=== PATIENT | male | born 1955 | race Caucasian/White ===

== ENCOUNTER 2019-01-31 13:52 | Observation (INO) | payer BC ==
[~2019-01-31] VITALS: Ht 185.4 cm; Wt 104.8 kg
--- NOTE | 2019-01-31 14:26 | NUR ---
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
[2019-01-31 14:35] LABS: BASOPHILS # (AUTO) 0.04 x10^3/uL (0-0.1); BASOPHILS % (AUTO) 1 % (0-1); EOSINOPHILS # (AUTO) 0.13 x10^3/uL (0-0.4); EOSINOPHILS % (AUTO) 2 % (1-7); LYMPHOCYTES # (AUTO) 1.97 x10^3/uL (1-3.4); LYMPHOCYTES % (AUTO) 23 % (22-44); MD NO; MEAN CORPUSCULAR HEMOGLOBIN 29.8 pg (27.5-34.5); MEAN CORPUSCULAR VOLUME 87.7 fL (81-97); MEAN PLATELET VOLUME 7.9 fL (7.4-10.4); MONOCYTES % (AUTO) 5 % (2-9); NEUTROPHILS # (AUTO) 5.96 x10^3/uL (1.8-6.8); NEUTROPHILS % (AUTO) 70 % (42-75); PLATELET COUNT 201 x10^3/uL (130-400); RED BLOOD COUNT 4.83 x10^6/uL (4.38-5.82); RED CELL DISTRIBUTION WIDTH 13.8 % (9.4-14.8)
[2019-01-31 14:45] LABS: ALANINE AMINOTRANSFERASE 33 U/L (12-78); ALBUMIN 4.3 g/dL (3.4-5.0); ANION GAP 6 mmol/L (5-15); CALCIUM 8.7 mg/dL (8.5-10.1); CHLORIDE 106 mmol/L (98-107)
[2019-01-31 14:50] LABS: ALKALINE PHOSPHATASE 65 U/L (45-117); BILIRUBIN,TOTAL 0.5 mg/dL (0.2-1.0); CREATININE 0.85 mg/dL (0.7-1.3); TOTAL PROTEIN 7.4 g/dL (6.4-8.2); TROPONIN I < 0.015 ng/mL (0.000-0.045)
[2019-01-31] MEDS ORDERED: ONDANSETRON 2MG/ML, 2ML IVPush ONE (15:00)
[2019-01-31] MEDS ORDERED: SODIUM CHLORIDE FLUSH 10ML SYR IVF ONE (15:00)
[2019-01-31] MEDS ORDERED: ASPIRIN 81 MG TABLET CHEW PO ONE (15:00)
[2019-01-31] MEDS ORDERED: ASPIRIN 81 MG TABLET CHEW ONE (15:03)
[2019-01-31 15:22] LABS: CHOL/HDL RATIO 7.2; LDL/HDL RATIO 4.6 (0.5-3.0)
[2019-01-31 15:34] LABS: HEMOGLOBIN A1C 6.1 % (4.2-6.3)
[2019-01-31] MEDS ORDERED: ONDANSETRON 2MG/ML, 2ML ONE (16:11)
[2019-01-31] MEDS ORDERED: METO-93 PO (16:45)
[2019-01-31] MEDS ORDERED: LISI-167 PO (16:45)
[2019-01-31] MEDS ORDERED: DOCUSATE 100 MG CAPSULE PO PRN (17:00)
[2019-01-31] MEDS ORDERED: MORPHINE SULFATE 4 MG/ML, 1ML IVPush PRN (17:00)
[2019-01-31] MEDS ORDERED: PROMETHAZINE 25 MG/ML, 1ML IM PRN (17:00)
[2019-01-31] MEDS ORDERED: ONDANSETRON 2MG/ML, 2ML IVPush PRN (17:00)
[2019-01-31] MEDS ORDERED: ACETAMINOPHEN 325 MG TABLET PO PRN (17:00)
[2019-01-31] MEDS ORDERED: hydrALAzine 20 MG/ML, 1ML IVPush PRN (17:00)
[2019-01-31] MEDS ORDERED: ONDANSETRON ODT 4 MG PO PRN (17:00)
[2019-01-31] MEDS ORDERED: POLYETHYLENE GLYCOL 17 GM PACKET PO PRN (17:00)
[2019-01-31] MEDS ORDERED: BISACODYL 10 MG SUPP PR PRN (17:00)
[2019-01-31] MEDS ORDERED: HEPARIN 5,000 UNITS/ML, 1ML ONE (17:28)
[2019-01-31] MEDS: HEPARIN 5,000 UNITS/ML, 1ML SQ SCH (17:45)
[2019-01-31 18:01] LABS: FREE T4 (FREE THYROXINE) 0.82 ng/dL (0.76-1.46); THYROID STIMULATING HORMONE 1.46 mIU/L (0.358-3.740)
[2019-01-31] MEDS: SODIUM CHLORIDE 0.9% 1,000 ML IV SCH (18:02)
[2019-01-31 19:46] LABS: MICROSCOPIC NOT IND
[2019-01-31 19:52] LABS: CULTURE INDICATED? NO
[2019-01-31 20:11] VITALS: BP 146/87
[2019-01-31] MEDS ORDERED: BUSP10TA PO (20:38)
[2019-01-31] MEDS ORDERED: MIRT45TA61 PO (20:38)
[2019-01-31] MEDS: DIPHENHYDRAMINE 50 MG CAPSULE PO PRN (22:42)
[2019-02-01 01:12] VITALS: BP 135/74
[2019-02-01] MEDS: HEPARIN 5,000 UNITS/ML, 1ML SQ SCH ×4 (01:41→21:14)
[2019-02-01] MEDS: SODIUM CHLORIDE 0.9% 1,000 ML IV SCH (04:06)
[2019-02-01 05:22] LABS: BASOPHILS # (AUTO) 0.02 x10^3/uL (0-0.1); BASOPHILS % (AUTO) 1 % (0-1); EOSINOPHILS % (AUTO) 6 % (1-7); LYMPHOCYTES # (AUTO) 1.69 x10^3/uL (1-3.4); LYMPHOCYTES % (AUTO) 33 % (22-44); MD NO; MEAN CORPUSCULAR HGB CONC 33.3 g/dL (33.2-36.2); MEAN CORPUSCULAR VOLUME 89.9 fL (81-97); MEAN PLATELET VOLUME 8.2 fL (7.4-10.4); MONOCYTES # (AUTO) 0.52 x10^3/uL (0.2-0.8); MONOCYTES % (AUTO) 10 % (2-9); NEUTROPHILS # (AUTO) 2.58 x10^3/uL (1.8-6.8); NEUTROPHILS % (AUTO) 50 % (42-75); PLATELET COUNT 177 x10^3/uL (130-400); RED BLOOD COUNT 4.55 x10^6/uL (4.38-5.82); RED CELL DISTRIBUTION WIDTH 13.9 % (9.4-14.8)
[2019-02-01 05:25] LABS: CHLORIDE 112 mmol/L (98-107)
[2019-02-01 05:48] LABS: ALANINE AMINOTRANSFERASE 29 U/L (12-78); ALBUMIN 3.5 g/dL (3.4-5.0); ALKALINE PHOSPHATASE 79 U/L (45-117); ANION GAP 6 mmol/L (5-15); BILIRUBIN,TOTAL 0.2 mg/dL (0.2-1.0); CALCIUM 8.5 mg/dL (8.5-10.1); CHOL/HDL RATIO 8.5; CHOLESTEROL, TOTAL 229 mg/dL (140-239); CREATININE 0.81 mg/dL (0.7-1.3); HDL CHOL % 12 % (26-37); HDL CHOLESTEROL (DIRECT) 27 mg/dL (40-60); LDL CHOLESTEROL,CALCULATED 135 mg/dL (54-169); TOTAL PROTEIN 6.5 g/dL (6.4-8.2); TRIGLYCERIDES 336 mg/dL (50-200); VLDL CHOLESTEROL 67 mg/dL (0-25)
[2019-02-01 07:40] VITALS: BP 135/78
[2019-02-01] MEDS: METOPROLOL SUCCINATE 50 MG TAB.ER.24H PO SCH (08:08)
[2019-02-01] MEDS: LISINOPRIL 10 MG TABLET PO SCH (08:09)
[2019-02-01 12:45] VITALS: BP 136/81
[2019-02-01] MEDS: BUSPIRONE 10 MG TABLET PO SCH ×2 (12:55→21:09)
[2019-02-01 18:53] VITALS: BP 134/76
[2019-02-01 18:57] VITALS: BP 142/79
[2019-02-01 18:58] VITALS: BP 149/91
[2019-02-01] MEDS ORDERED: MIRTAZAPINE 15 MG TABLET PO SCH (21:00)
[2019-02-01] MEDS: DIPHENHYDRAMINE 50 MG CAPSULE PO PRN (21:09)
[2019-02-02 02:22] VITALS: BP 132/76
[2019-02-02 05:18] LABS: BASOPHILS # (AUTO) 0.02 x10^3/uL (0-0.1); BASOPHILS % (AUTO) 0 % (0-1); EOSINOPHILS # (AUTO) 0.27 x10^3/uL (0-0.4); EOSINOPHILS % (AUTO) 5 % (1-7); LYMPHOCYTES # (AUTO) 1.64 x10^3/uL (1-3.4); LYMPHOCYTES % (AUTO) 31 % (22-44); MD NO; MEAN CORPUSCULAR HEMOGLOBIN 30.1 pg (27.5-34.5); MEAN CORPUSCULAR HGB CONC 33.6 g/dL (33.2-36.2); MEAN CORPUSCULAR VOLUME 89.5 fL (81-97); MEAN PLATELET VOLUME 8.1 fL (7.4-10.4); MONOCYTES # (AUTO) 0.49 x10^3/uL (0.2-0.8); MONOCYTES % (AUTO) 9 % (2-9); NEUTROPHILS # (AUTO) 2.88 x10^3/uL (1.8-6.8); NEUTROPHILS % (AUTO) 54 % (42-75); PLATELET COUNT 170 x10^3/uL (130-400); RED BLOOD COUNT 4.73 x10^6/uL (4.38-5.82); RED CELL DISTRIBUTION WIDTH 13.9 % (9.4-14.8)
[2019-02-02 05:25] LABS: CHLORIDE 109 mmol/L (98-107)
[2019-02-02 05:42] LABS: ALANINE AMINOTRANSFERASE 28 U/L (12-78); ALBUMIN 3.8 g/dL (3.4-5.0); ALKALINE PHOSPHATASE 66 U/L (45-117); ANION GAP 8 mmol/L (5-15); BILIRUBIN,TOTAL 0.4 mg/dL (0.2-1.0); CALCIUM 8.5 mg/dL (8.5-10.1); CREATININE 0.83 mg/dL (0.7-1.3); TOTAL PROTEIN 6.9 g/dL (6.4-8.2)
[2019-02-02 07:57] VITALS: BP 132/77
[2019-02-02 07:58] VITALS: BP 130/89
[2019-02-02 07:59] VITALS: BP 133/89
[2019-02-02] MEDS: METOPROLOL SUCCINATE 50 MG TAB.ER.24H PO SCH (09:09)
[2019-02-02] MEDS: HEPARIN 5,000 UNITS/ML, 1ML SQ SCH (09:09)
[2019-02-02] MEDS: BUSPIRONE 10 MG TABLET PO SCH (09:10)
[2019-02-02] MEDS: LISINOPRIL 10 MG TABLET PO SCH (09:10)
[2019-02-02 15:02] VITALS: BP 138/80
== END 2019-02-02 17:54 | disposition home or self-care (01) ==
LOC: ED 15:07 → EDIP 15:38 → INTOOBSV 15:38 → 4EST 18:23
PROVIDERS: ADMIT Hospitalist; ATTEND Hospitalist
DX: R55 Syncope and collapse (principal); E86.0 Dehydration; I48.0 Paroxysmal atrial fibrillation; I10 Essential (primary) hypertension; R11.0 Nausea; Z77.028 Contact with and (suspected) exposure to other hazardous aromatic compounds
CPT/HCPCS: 0399T; 36415; 70551; 71045; 80053; 80061; 81003; 82306; 82607; 83036; 83735; 83880; 84439; 84443; 84484; 85025; 93005; 93306; 93880; 96361; 96372; 96374; 99285; G0378; J1644; J2405; J7030